=== PATIENT | male | born 1945 | race Caucasian/White ===

== ENCOUNTER 2020-02-13 11:29 | Outpatient (CLI) | payer MEDICARE ==
--- NOTE | 2020-02-13 12:40 | RAD ---
2 VIEW CHEST: Date: 02/13/2020 INDICATION: Emphysema. FINDINGS: Lungs appear clear of infiltrate. Heart size upper normal. Vascular markings normal. Mild interstitia l prominence. Mild apical pleural thickening bilaterally. 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 The th oracic vertebra maintain height. IMPRESSION: Chronic lung changes as described. No evidence of acute infiltrate. POS: [facility]W
== END 2020-02-13 11:30 | disposition home or self-care (01) ==
LOC: NAV RAD 11:29
PROVIDERS: ATTEND Nurse Practitioner Adult Health
DX: J43.9 Emphysema, unspecified (principal); J92.9 Pleural plaque without asbestos
CPT/HCPCS: 71046

== ENCOUNTER 2020-04-20 22:29 | Emergency (ER) | payer MEDICARE ==
--- NOTE | 2020-04-20 23:53 | CT ---
CT head noncontrast HISTORY: Dizziness. COMPARISON: 10/19/2018. FINDINGS: There is no evidence of acute intracranial hemorrhage or infarct. 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 Mild chronic ischemic small vessel disease and diffuse cortical atrophy again demonstrated. There is no mass effect or shift of midline structures. Visualized paranasal sinuses remain well aera michelle. IMPRESSION : Chronic-type findings are stable. No acute intracranial abnormalities are demonstrated.
== END 2020-04-21 00:10 | disposition home or self-care (01) ==
LOC: NAV ERS 22:29
DX: H81.10 Benign paroxysmal vertigo, unspecified ear (principal); I47.1 Supraventricular tachycardia; E11.9 Type 2 diabetes mellitus without complications; E03.9 Hypothyroidism, unspecified; N40.0 Benign prostatic hyperplasia without lower urinary tract symptoms; F17.210 Nicotine dependence, cigarettes, uncomplicated; Z86.73 Personal history of transient ischemic attack (TIA), and cerebral infarction without residual deficits; Z79.899 Other long term (current) drug therapy
CPT/HCPCS: 36416; 70450

== ENCOUNTER 2022-11-24 12:59 | Outpatient (CLI) | payer MEDICARE | END 2022-11-24 13:00 | disposition home or self-care (01) | LOC: NAV CT 12:59 | PROVIDERS: ATTEND Orthopaedic Surgery | DX: S32.008A Other fracture of unspecified lumbar vertebra, initial encounter for closed fracture (principal); S52.591A Other fractures of lower end of right radius, initial encounter for closed fracture; S32.041A Stable burst fracture of fourth lumbar vertebra, initial encounter for closed fracture | CPT/HCPCS: 72100; 72131 ==

== ENCOUNTER 2022-12-22 12:13 | Outpatient (CLI) | payer MEDICARE | END 2022-12-22 12:14 | disposition home or self-care (01) | LOC: NAV CT 12:13 | PROVIDERS: ATTEND Surgery | DX: S52.591A Other fractures of lower end of right radius, initial encounter for closed fracture (principal) | CPT/HCPCS: 72100 ==

== ENCOUNTER 2023-06-29 09:34 | Emergency (ER) | payer MEDICARE ==
[~2023-06-29 09:34] MED LIST: Iopamidol 370 76% 100 ML VIAL ONE
[2023-06-29] MEDS ORDERED: fentaNYL 50 mcg/mL 1 mL Vial ONE (10:21)
[2023-06-29] MEDS ORDERED: Ondansetron PF 4 MG/2 ML Vial ONE (10:22)
[2023-06-29 10:26] LABS: #Basophils 0.1 thou/uL (0.0-0.2); #Eosinphils 0.2 thou/uL (0.0-0.7); #Lymphocytes 1.7 thou/uL (1.20-3.40); #Monocytes 0.4 thou/uL (0.11-0.59); #Neutrophils 5.6 thou/uL (1.40-6.50); %Basophils 0.7 % (0.0-1.0); %Eosinophils 2.4 % (0.0-10.0); %Lymphocytes 21.3 % (21.0-51.0); %Monocytes 5.1 % (0.0-10.0); %Neutrophils 70.6 % (42.0-75.0); Hematocrit 40.9 % (42.0-52.0); Hemoglobin 13.6 g/dL (14.0-18.0); Mean Corpuscular HGB CONC 33.3 g/dL (32.0-36.0); Mean Corpuscular Hemoglobin 32.8 pg (27.0-31.0); Mean Corpuscular Volume 98.8 fl (78.0-98.0); Mean Platelet Volume 7.5 fL (7.4-10.4); Platelet Count 107 10x3/uL (130-400); RBC Distribution Width 13.5 % (11.5-14.5); Red Blood Cell (RBC) Count 4.14 mill/uL (4.70-6.10)
[2023-06-29 10:36] LABS: ALT (SGPT) 37 U/L (8-55); AST (SGOT) 43 U/L (5-34); Albumin 3.1 g/dL (3.4-4.8); Alkaline Phosphatase 195 U/L (40-110); Anion Gap 14 mmol/L (10-20); BUN (Urea Nitrogen) 25 mg/dL (8.4-25.7); Bilirubin, Total 0.8 mg/dL (0.2-1.2); Calc. Creatinine Clearance 0 mL/min (70-130); Calcium 8.8 mg/dL (7.8-10.44); Carbon Dioxide 25 mmol/L (23-31); Chloride 102 mmol/L (98-107); Estimated GFR 47; Globulin 3.8 g/dL (2.4-3.5); Glucose 225 mg/dL (83-110); Lipase 61 U/L (8-78); Magnesium 1.9 mg/dL (1.6-2.6); Protein, Total 6.9 g/dL (5.8-8.1); Sodium 137 mmol/L (136-145)
[2023-06-29 11:24] LABS: Bilirubin Negative (Negative); Blood, Urine Moderate (Negative); Clarity Clear (Clear); Glucose, Urine (Dipstick) Negative (Negative); Ketone, Urine Negative (Negative); Leukocyte Negative (Negative); Nitrite Negative (Negative); Protein, Urine (Dipstick) Trace mg/dL (Neg-Trace); Urobilinogen 0.2 mg/dL (Less than 2); pH, Urine 6.5 (5.0-9.0)
[2023-06-29 11:26] LABS: Specific Gravity, Urine 1.025 (1.002-1.036)
[2023-06-29 11:33] LABS: RBC/HPF 21-50 HPF (0-3)
[2023-06-29 11:34] LABS: Bacteria/HPF Rare-Few HPF (None Seen); CAUTI Indications for Culture Pelvic or flank pain; Calcium Oxalate Crystals 1+ HPF (None Seen); Squamous Epithelial None Seen HPF (0-3)
[2023-06-29 11:35] LABS: Urine Culture Reflex No No
[2023-06-29] MEDS ORDERED: Lidocaine 1% w/Epinephrine 1:100K 20 ML VIAL ONE (12:36)
== END 2023-06-29 13:14 | disposition short-term general hospital (02) ==
LOC: NAV ERS 09:34
DX: K74.60 Unspecified cirrhosis of liver (principal); R14.0 Abdominal distension (gaseous); M79.89 Other specified soft tissue disorders; E11.9 Type 2 diabetes mellitus without complications; F17.210 Nicotine dependence, cigarettes, uncomplicated
CPT/HCPCS: 74177; 80053; 81001; 83690; 83735; 83880; 85025; J3010; 49083; 96374; 96375; J2405; Q9967